=== PATIENT | male | born 1985 | race Caucasian/White ===

== ENCOUNTER 2018-10-30 16:35 | Emergency (ER) | payer SELFPAY ==
[2018-10-30] MEDS ORDERED: IPRATROPIUM BROM 0.5MG/2.5ML ONE (17:28)
[2018-10-30] MEDS ORDERED: ALBUTEROL 2.5 MG/3 ML NEB SOL ONE (17:28)
[2018-10-30] MEDS ORDERED: HYDROCODONE/CHLORPHEN 5 ML/OSYR ONE (17:29)
--- NOTE | 2018-10-30 17:54 | RAD REPORT ---
EXAM DESCRIPTION: Nallely Morales And Alexandre (2 Views)10/30/2018 5:22 pm CLINICAL HISTORY: Cough COMPARISON: None FINDINGS: Mild to moderate patchy right lung opacities. Left lung appears of acute infiltrate. The h eart is normal size IMPRESSION: Mild to moderate right pneumonia
--- NOTE | 2018-10-30 18:11 | ER ---
Nurse's Notes [facility] Name: Jean Burnett Jr Age: 32 yrs Sex: Male : 1985 Arrival Date: 10/30/2018 Time: 16:36 Bed 23 Private MD: Diagnosis: Pneumonia due to other specified bacteria-right lung Presentation: 10/30 16:39 Presenting complaint: Patient states: Cough and fever since Wednesday. 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 Patient reports taking Tylenol 1,000mg at 1600 today. Transition of care: patient was not received from another setting of care. Onset of symptoms was October 28, 2018. Risk Assessment: Do you want to hurt yourself or someone else? Patient reports no desire to harm self or others. Initial Sepsis Screen: Does the patient meet any 2 criteria? No. Patient's initial sepsis screen is negative. Does the patient have a suspected source of infection? No. Patient's initial sepsis screen is negative. Care prior to arrival: None. 16:39 Method Of Arrival: Ambulatory 16:39 Acuity: WIL 4 aj Triage Assessment: 16:41 General: Appears in no apparent distress. comfortable, Behavior is calm, cooperative, aj appropriate for age. Pain: Denies pain. Neuro: Level of Consciousness is awake, alert, obeys commands, Oriented to person, place, time, situation, Appropriate for age. Respiratory: Reports cough that is Airway is patent Respiratory effort is even, unlabored, Respiratory pattern is regular, symmetrical. Derm: Skin is intact, is healthy with good turgor, Skin is pink, warm \T\ dry. normal. Historical: - Allergies: 16:41 Sulfa (Sulfonamide Antibiotics); aj - Home Meds: 16:41 None [Active]; aj - PMHx: 16:41 None; aj - PSHx: 16:41 Right arm; right leg; Tonsillectomy; aj - Immunization history:: Adult Immunizations up to date. - Social history:: Smoking status: Patient uses tobacco products, denies chronic smoking, but will smoke occasionally. - Ebola Screening: : Patient negative for fever greater than or equal to 101.5 degrees Fahrenheit, and additional compatible Ebola Virus Disease symptoms Patient denies exposure to infectious person Patient denies travel to an Ebola-affected area in the 21 days before illness onset No symptoms or risks identified at this time. Screenin:50 Abuse screen: Denies threats or abuse. Nutritional screening: No deficits noted. la1 Tuberculosis screening: No symptoms or risk factors identified. Fall Risk None identified. Assessment: 16:49 General: Appears ill, Behavior is calm, cooperative. Neuro: Level of Consciousness is la1 awake, alert, obeys commands, Oriented to person, place, time, situation, Facial symmetry appears normal. Neuro: Gait is steady. Cardiovascular: Capillary refill < 3 seconds Patient's skin is warm and dry. Respiratory: Airway is patent Respiratory effort is even, unlabored, Respiratory pattern is regular, symmetrical. GI: Abdomen is round non-distended. : No signs and/or symptoms were reported regarding the genitourinary system. Musculoskeletal: Circulation, motion, and sensation intact. 17:50 Reassessment: Patient appears in no apparent distress at this time. No changes from la1 previously documented assessment. Patient and/or family updated on plan of care and expected duration. Pain level reassessed. Patient is alert, oriented x 3, equal unlabored respirations, skin warm/dry/pink. Vital Signs: 16:41 BP 127 / 66; Pulse 111; Resp 20; Temp 99.2(O); Pulse Ox 96% on R/A; Weight 106.59 kg; aj Height 6 ft. 1 in. (185.42 cm); 18:16 BP 122 / 74; Pulse 109; Resp 18; Temp 99.6; Pulse Ox 98% on R/A; la1 16:41 Body Mass Index 31.00 (106.59 kg, 185.42 cm) aj ED Course: 16:36 Patient arrived in ED. as 16:40 Triage completed. aj 16:41 Arm band placed on left wrist. Patient placed in an exam room. aj 16:42 Srinivasa Kay, SANA is Primary Nurse. la1 16:43 Oziel Rascon PA is PHCP. cp 16:43 Oziel Richards MD is Attending Physician. cp 16:50 Call light in reach. Side rails up X 1. la1 17:21 XRAY Chest Pa And Lat (2 Views) In Process Unspecified. EDMS 18:16 No provider procedures requiring assistance completed. Patient did not have IV access la1 during this emergency room visit. Administered Medications: 17:27 Drug: AtroVENT Aerosol 0.5 mg Route: Inhalation; la1 17:36 Follow up: Response: No adverse reaction la1 17:28 Drug: Albuterol 2.5 mg Route: Inhalation; la1 17:36 Follow up: Response: No adverse reaction la1 17:28 Drug: Tussionex Pennkinetic ER 5 ml Route: PO; la1 17:35 Follow up: Response: No adverse reaction la1 18:10 Drug: Augmentin 875 mg Route: PO; la1 18:10 Follow up: Response: Medication administered at discharge. la1 18:10 Drug: Zithromax 500 mg Route: PO; la1 18:10 Follow up: Response: Medication administered at discharge. la1 Outcome: 18:10 Discharge ordered by . cp 18:16 Discharged to home ambulatory. la1 18:16 Condition: stable 18:16 Discharge instructions given to patient, Instructed on discharge instructions, follow up and referral plans. medication usage, Demonstrated understanding of instructions, follow-up care, medications, Prescriptions given X 4. 18:17 Patient left the ED. la1 Signatures: Dispatcher [employer] EDMS Shavon Hernandez RN RN aj Martinez, Amelia as Attema, Lee, RN RN la1 Oziel Rascon PA PA cp
--- NOTE | 2018-10-30 18:11 | EDPHYS ---
Physician Documentation [facility] Name: Jean Burnett Jr Age: 32 yrs Sex: Male : 1985 Arrival Date: 10/30/2018 Time: 16:36 Bed 23 Private MD: ED Physician Oziel Richards HPI: 10/30 17:00 This 32 yrs old Male presents to ER via Ambulatory with complaints of Fever, cp Chest Congestion. 17:00 The patient or guardian reports cough, that is constant, with productive sputum. cp 17:00 Onset: The symptoms/episode began/occurred 2 day(s) ago. Associated signs and symptoms: cp Pertinent positives: fever, sore throat, Pertinent negatives: chest pain, diarrhea, vomiting. Severity of symptoms: in the emergency department the symptoms have improved mildly. Historical: - Allergies: 16:41 Sulfa (Sulfonamide Antibiotics); aj - Home Meds: 16:41 None [Active]; aj - PMHx: 16:41 None; aj - PSHx: 16:41 Right arm; right leg; Tonsillectomy; aj - Immunization history:: Adult Immunizations up to date. - Social history:: Smoking status: Patient uses tobacco products, denies chronic smoking, but will smoke occasionally. - Ebola Screening: : Patient negative for fever greater than or equal to 101.5 degrees Fahrenheit, and additional compatible Ebola Virus Disease symptoms Patient denies exposure to infectious person Patient denies travel to an Ebola-affected area in the 21 days before illness onset No symptoms or risks identified at this time. ROS: 17:15 Constitutional: Positive for body aches, chills, fever, Negative for poor PO intake. cp 17:15 Eyes: Negative for injury, pain, redness, and discharge. cp 17:15 ENT: Positive for sore throat, Negative for drainage from ear(s), ear pain, difficulty swallowing, difficulty handling secretions. 17:15 Neck: Negative for stiffness. 17:15 Cardiovascular: Negative for chest pain, palpitations. 17:15 Respiratory: Positive for cough, "sounds productive", Negative for shortness of breath, wheezing. 17:15 Abdomen/GI: Negative for abdominal pain, nausea, vomiting, and diarrhea, constipation. 17:15 Back: Negative for pain at rest, pain with movement, radiated pain. 17:15 : Negative for urinary symptoms. 17:15 Skin: Negative for rash. 17:15 Neuro: Negative for altered mental status, headache, weakness. 17:15 All other systems are negative. Exam: 17:20 Constitutional: The patient appears in no acute distress, alert, awake, cp non-diaphoretic, non-toxic, well developed, well nourished, febrile. 17:20 Head/Face: Normocephalic, atraumatic. cp 17:20 Eyes: Periorbital structures: appear normal, Conjunctiva: normal, no exudate, no injection, Sclera: no appreciated abnormality, Lids and lashes: appear normal, bilaterally. 17:20 ENT: External ear(s): are unremarkable, Ear canal(s): are normal, clear, TM's: bulging, is not appreciated, bilaterally, dullness, bilaterally, erythema, is not appreciated, bilaterally, Nose: is normal, Mouth: Lips: moist, Oral mucosa: moist, Posterior pharynx: Airway: no evidence of obstruction, patent, Tonsils: no enlargement, no exudate, Uvula: midline, swelling, is not appreciated, erythema, that is mild, exudate, is not appreciated, Voice: is normal. 17:20 Neck: ROM/movement: is normal, is supple, no meningismus, no nuchal rigidity, Lymph nodes: no appreciated lymphadenopathy. 17:20 Chest/axilla: Inspection: normal, Palpation: is normal, no crepitus, no tenderness. 17:20 Cardiovascular: Rate: tachycardic, Rhythm: regular. 17:20 Respiratory: the patient does not display signs of respiratory distress, Respirations: labored breathing, is not present, accessory muscle usage, is absent, intercostal retractions, are absent, splinting, is not noted, tachypnea, is not appreciated, Breath sounds: bronchial sounds, that are mild, are heard in the right posterior middle lobe and right posterior lower lobe, decreased breath sounds, are not appreciated, stridor, is not appreciated, wheezing: is not appreciated. 17:20 Abdomen/GI: Inspection: abdomen appears normal, Palpation: abdomen is soft and non-tender, in all quadrants. 17:20 Skin: no rash present. 17:20 Neuro: Orientation: to person, place \\T\\ time. Mentation: is normal, Motor: is normal, Sensation: is normal, Gait: is steady. Vital Signs: 16:41 BP 127 / 66; Pulse 111; Resp 20; Temp 99.2(O); Pulse Ox 96% on R/A; Weight 106.59 kg; aj Height 6 ft. 1 in. (185.42 cm); 18:16 BP 122 / 74; Pulse 109; Resp 18; Temp 99.6; Pulse Ox 98% on R/A; la1 16:41 Body Mass Index 31.00 (106.59 kg, 185.42 cm) aj MDM: 16:43 Patient medically screened. cp 17:00 Differential diagnosis: bronchitis, flu, URI, pneumonia meningitis. cp 17:42 ED course: Chest xray shows infiltrate right middle lobe. cp 18:05 Antibiotic administration: The patient is discharged and will get outpatient cp antibiotics, Zithromax, Augmentin. 18:05 Data reviewed: vital signs, nurses notes, lab test result(s), radiologic studies, plain cp films. Test interpretation: by ED physician or midlevel provider: plain radiologic studies. Counseling: I had a detailed discussion with the patient and/or guardian regarding: the historical points, exam findings, and any diagnostic results supporting the discharge/admit diagnosis, lab results, radiology results, the need for outpatient follow up, a family practitioner, to return to the emergency department if symptoms worsen or persist or if there are any questions or concerns that arise at home. Response to treatment: the patient's symptoms have markedly improved after treatment, and as a result, I will discharge patient. ED course: VSS. No signs of respiratory distress noted. Will treat outpatient with oral antibiotics and recommend f/u next 2-3 days. 05 17:05 Order name: Strep 10/30 17:05 Order name: Influenza Screen (a \\T\\ B) / 17:05 Order name: XRAY Chest Pa And Lat (2 Views); Complete Time: 17:56 05/ 17:56 Interpretation: Report reviewed. 10/30 17:06 Order name: Group A Streptococcus Rapid Sc; Complete Time: 17:56 EDVT 10/30 17:57 Interpretation: Reviewed. 10/30 17:06 Order name: Influenza Screen (A ; Complete Time: 17:56 EDVT 10/30 17:57 Interpretation: Reviewed. 10/30 17:57 Order name: Throat Culture EDMS Administered Medications: 17:27 Drug: AtroVENT Aerosol 0.5 mg Route: Inhalation; la1 17:36 Follow up: Response: No adverse reaction la1 17:28 Drug: Albuterol 2.5 mg Route: Inhalation; la1 17:36 Follow up: Response: No adverse reaction la1 17:28 Drug: Tussionex Pennkinetic ER 5 ml Route: PO; la1 17:35 Follow up: Response: No adverse reaction la1 18:10 Drug: Augmentin 875 mg Route: PO; la1 18:10 Follow up: Response: Medication administered at discharge. la1 18:10 Drug: Zithromax 500 mg Route: PO; la1 18:10 Follow up: Response: Medication administered at discharge. la1 Disposition: 10/31 09:27 Co-signature as Attending Physician, Oziel Richards MD I agree with the assessment and diamond plan of care. Disposition: 10/30/18 18:10 Discharged to Home. Impression: Pneumonia due to other specified bacteria - right lung. - Condition is Stable. - Discharge Instructions: Community-Acquired Pneumonia, Adult. - Prescriptions for Augmentin 875- 125 mg Oral Tablet - take 1 tablet by ORAL route every 12 hours for 10 days; 20 tablet. Ibuprofen 800 mg Oral Tablet - take 1 tablet by ORAL route every 8 hours As needed take with food; 30 tablet. Albuterol Sulfate 2.5 mg /3 mL (0.083 %) Inhalation Solution for Nebulization - inhale 1 unit by NEBULIZATION route every 8 hours As needed; 1 box. Zithromax Z- Devante 250 mg Oral Tablet - take 1 tablet by ORAL route as directed for 5 days Day 1 - take two (2) tablets one time. Day 2, 3, 4 , 5 take one (1) tablet once daily.; 6 tablet. - Work release form, Medication Reconciliation Form, Thank You Letter, Antibiotic Education, Prescription Opioid Use form. - Follow up: Private Physician; When: 2 - 3 days; Reason: Recheck today's complaints. - Problem is new. - Symptoms have improved. Signatures: Dispatcher [employer] EDMS Shavon Hernandez RN RN aj Anderson, Corey, MD MD cha Attema, Lee, RN RN la1 Oziel Rascon PA PA cp Corrections: (The following items were deleted from the chart) 10/30 18:17 18:10 10/30/2018 18:10 Discharged to Home. Impression: Pneumonia due to other specified la1 bacteria - right lung. Condition is Stable. Forms are Medication Reconciliation Form, Thank You Letter, Antibiotic Education, Prescription Opioid Use. Follow up: Private Physician; When: 2 - 3 days; Reason: Recheck today's complaints. Problem is new. Symptoms have improved. cp
[2018-10-30] MEDS ORDERED: AMOX/K CLAV 875 MG TAB ONE (18:15)
[2018-10-30] MEDS ORDERED: AZITHROMYCIN 250 MG TAB ONE (18:15)
== END 2018-10-30 18:17 | disposition home or self-care (01) ==
LOC: ER 16:35
DX: J15.8 Pneumonia due to other specified bacteria (principal); Z72.0 Tobacco use; Z88.2 Allergy status to sulfonamides
CPT/HCPCS: 71046; 87070; 87081; 87804; 99284